=== PATIENT | female | born 1970 | race Two or more races ===

== ENCOUNTER 2020-11-12 18:03 | Inpatient (IN) | payer BC, OTHER ==
[~2020-11-12] VITALS: Ht 160 cm; Wt 89.0 kg
[2020-11-12 21:42] LABS: Basophils # (auto) 0 10 ^3/uL (0-0.2); Basophils % (auto) 0.2 % (0.0-2.0); Eosinophils # (auto) 0 10 ^3/uL (0-0.8); Hematocrit 40.4 % (36.0-46.0); Hemoglobin 13.7 g/dL (12.2-16.2); Lymphocytes # (auto) 0.9 10 ^3/uL (0.4-5.4); Lymphocytes % (auto) 13.7 % (10.0-50.0); Mean Corpuscular Hemoglobin 31.5 pg (28.0-32.0); Mean Corpuscular Volume 92.6 fL (80.0-100.0); Monocytes # (auto) 0.5 10 ^3/uL (0-1.3); Monocytes % (auto) 7.4 % (0.0-12.0); Neutrophils # (auto) 4.9 10 ^3/uL (1.6-8.6); Neutrophils % (auto) 78.7 % (37.0-80.0); Nucleated Red Blood Cells % 0.1 %; Platelet Count (auto) 258 10^3/uL (140-450); Red Blood Cells 4.37 10^6/uL (4.0-5.20); Red Cell Distribution Width 13.4 % (11.8-14.3); White Blood Cell 6.3 10^3/uL (4.4-10.8)
[2020-11-12 22:00] LABS: Anion Gap 6 (5-15); Blood Urea Nitrogen 15 mg/dL (7-18); Calcium 8.2 mg/dL (8.5-10.1); Carbon Dioxide 25 mmol/L (21-32); Chloride 105 mmol/L (98-107); Glucose 109 mg/dL (74-106); Magnesium 2.3 mg/dL (1.6-2.6); Potassium 3.6 mmol/L (3.5-5.1); Sodium 136 mmol/L (136-145)
[2020-11-12 22:06] LABS: Alanine Aminotransferase 47 U/L (13-56); Alkaline Phosphatase 65 U/L (45-117); Aspartate Aminotransferase 33 U/L (15-37); BUN/Creatinine Ratio 24.2; Bilirubin, Total 0.3 mg/dL (0.2-1.0); GFR African American 131 mL/min; GFR Non-African American 108 mL/min; Total Protein 7.4 g/dL (6.4-8.2)
[2020-11-13] MEDS ORDERED: DexAMETHasone SOD PHOS 10MG/1ML VIAL INJ IV ONE (07:15)
[2020-11-13] MEDS ORDERED: ACETAMINOPHEN 325 MG TAB PO ONE (07:15)
[2020-11-13] MEDS ORDERED: DOXYCYCLINE 100MG/250ML 250 ML IV ONE (07:15)
[2020-11-13] MEDS ORDERED: AZITHROMYCIN 500MG/ 250ML 250 ML IV ONE (07:15)
[2020-11-13] MEDS ORDERED: NITROGLYCERIN 0.4 MG SL TAB SL PRN (07:30)
[2020-11-13] MEDS ORDERED: MORPHINE SULF INJ 2 MG/ML SYRINGE 1ML IV PRN (07:30)
[2020-11-13] MEDS ORDERED: ALBUTEROL SULF HFA 90MCG INH 200DOSE IN PRN ×2 (07:30→15:45)
[2020-11-13] MEDS ORDERED: ONDANSETRON HCL 4 MG/2 ML VIAL IV PRN (07:30)
[2020-11-13] MEDS ORDERED: ACETAMINOPHEN 500 MG TAB PO PRN (07:30)
[2020-11-13] MEDS ORDERED: TEMAZEPAM 15 MG CAP PO PRN (07:30)
[2020-11-13] MEDS ORDERED: SODIUM CHLORIDE 0.9% 1,000 ML IV SCH (07:30)
[2020-11-13 08:43] LABS: CRP High Sensitivity 10.7 mg/dL (< 0.3); Magnesium 2.2 mg/dL (1.6-2.6)
[2020-11-13] MEDS: ZINC SULFATE 220mg CAP or TAB PO SCH (09:52)
[2020-11-13] MEDS: ASCORBIC ACID 1,000 MG TAB PO SCH (09:53)
[2020-11-13] MEDS: FAMOTIDINE 20 MG TAB PO SCH ×2 (09:53→23:19)
[2020-11-13] MEDS: CHOLECALCIFEROL (VITD3) 2,000 UNIT CAP PO SCH (09:54)
[2020-11-13] MEDS: ENOXAPARIN SOD 40 MG/0.4 ML SYRINGE SC SCH ×2 (09:54→23:19)
[2020-11-13] MEDS ORDERED: REMDESIVIR PER PHARMACY 0 ML IV SCH (10:15)
[2020-11-13] MEDS ORDERED: REMDESIVIR 200 MG in NS 210ml LOADING DOSE ADULT IV ONE (15:00)
[2020-11-13] MEDS ORDERED: cefTRIAXone 1GM/50ML D5W 50 ML IV ONE (15:45)
[2020-11-13] MEDS ORDERED: POTASSIUM CHL 10 Meq TABLET PO ONE (15:45)
[2020-11-13] MEDS ORDERED: FUROSEMIDE 20 MG/2 ML VIAL IV ONE (15:45)
[2020-11-13] MEDS: SODIUM CHLORIDE 0.9% 1,000 ML IV SCH (16:33)
[2020-11-14 00:20] VITALS: BP 121/63
[2020-11-14 00:35] VITALS: BP 120/60
[2020-11-14 02:00] VITALS: BP 110/63
[2020-11-14 06:20] LABS: Basophils # (auto) 0 10 ^3/uL (0-0.2); Basophils % (auto) 0.1 % (0.0-2.0); Eosinophils # (auto) 0 10 ^3/uL (0-0.8); Hematocrit 36.5 % (36.0-46.0); Hemoglobin 12.6 g/dL (12.2-16.2); Lymphocytes # (auto) 1.6 10 ^3/uL (0.4-5.4); Lymphocytes % (auto) 20.4 % (10.0-50.0); Mean Corpuscular Hemoglobin 31.9 pg (28.0-32.0); Mean Corpuscular Hgb Conc. 34.5 g/dL (32.0-36.0); Mean Corpuscular Volume 92.5 fL (80.0-100.0); Monocytes # (auto) 0.7 10 ^3/uL (0-1.3); Monocytes % (auto) 8.9 % (0.0-12.0); Neutrophils # (auto) 5.4 10 ^3/uL (1.6-8.6); Neutrophils % (auto) 70.6 % (37.0-80.0); Nucleated Red Blood Cells % 0.1 %; Platelet Count (auto) 284 10^3/uL (140-450); Red Blood Cells 3.95 10^6/uL (4.0-5.20); Red Cell Distribution Width 13.1 % (11.8-14.3); White Blood Cell 7.7 10^3/uL (4.4-10.8)
[2020-11-14 06:32] LABS: Potassium 3.7 mmol/L (3.5-5.1)
[2020-11-14 06:41] LABS: Albumin 2.6 g/dL (3.4-5.0); BUN/Creatinine Ratio 32.7; Bilirubin, Total 0.2 mg/dL (0.2-1.0); Calcium 8.3 mg/dL (8.5-10.1); Magnesium 2.1 mg/dL (1.6-2.6); Total Protein 6.8 g/dL (6.4-8.2)
--- NOTE | 2020-11-14 06:57 | NUR ---
Respiratory note: MEDICATION NOT AT BEDSIDE. HR 91, RR 18, POX 96%, BS CLR/DIM. NO DISTRESS NOTED.
[2020-11-14] MEDS: BUDESONIDE (INHALATION) 180 MCG IH IN SCH ×3 (07:33→22:00)
[2020-11-14] MEDS: cefTRIAXone 1GM/50ML D5W 50 ML IV SCH (08:50)
[2020-11-14] MEDS: ZINC SULFATE 220mg CAP or TAB PO SCH (08:52)
[2020-11-14] MEDS: POTASSIUM CHL 10 Meq TABLET PO SCH (08:53)
[2020-11-14] MEDS: FAMOTIDINE 20 MG TAB PO SCH ×2 (08:53→22:28)
[2020-11-14] MEDS: CHOLECALCIFEROL (VITD3) 2,000 UNIT CAP PO SCH (08:53)
[2020-11-14] MEDS: ASCORBIC ACID 1,000 MG TAB PO SCH (08:53)
[2020-11-14] MEDS: ENOXAPARIN SOD 40 MG/0.4 ML SYRINGE SC SCH ×2 (08:54→22:28)
[2020-11-14] MEDS: AZITHROMYCIN 500MG/ 250ML 250 ML IV SCH (08:58)
[2020-11-14] MEDS: DexAMETHasone SOD PHOS 10MG/1ML VIAL INJ IV SCH (08:58)
[2020-11-14] MEDS: FUROSEMIDE 20 MG/2 ML VIAL IV SCH (08:59)
[2020-11-14] MEDS ORDERED: AZITHROMYCIN 500MG/D5WorNS 250ml IV SCH (10:00)
[2020-11-14] MEDS: SODIUM CHLORIDE 0.9% 1,000 ML IV SCH (11:48)
[2020-11-14] MEDS: REMDESIVIR 100 MG in SODIUM CHL 0.9% 250 ML IV SCH (15:00)
[2020-11-15] MEDS: cefTRIAXone 1GM/50ML D5W 50 ML IV SCH (09:00)
[2020-11-15] MEDS: DexAMETHasone SOD PHOS 10MG/1ML VIAL INJ IV SCH ×2 (10:00→21:56)
[2020-11-15] MEDS: FUROSEMIDE 20 MG/2 ML VIAL IV SCH (10:00)
[2020-11-15] MEDS: BUDESONIDE (INHALATION) 180 MCG IH IN SCH ×2 (10:00→21:19)
[2020-11-15] MEDS: ASCORBIC ACID 1,000 MG TAB PO SCH (10:00)
[2020-11-15] MEDS: POTASSIUM CHL 10 Meq TABLET PO SCH (10:00)
[2020-11-15] MEDS: CHOLECALCIFEROL (VITD3) 2,000 UNIT CAP PO SCH (10:00)
[2020-11-15] MEDS: AZITHROMYCIN 500MG/ 250ML 250 ML IV SCH (10:00)
[2020-11-15] MEDS: ZINC SULFATE 220mg CAP or TAB PO SCH (10:00)
[2020-11-15] MEDS: ENOXAPARIN SOD 40 MG/0.4 ML SYRINGE SC SCH ×2 (10:00→21:56)
[2020-11-15] MEDS: FAMOTIDINE 20 MG TAB PO SCH ×2 (10:00→21:56)
[2020-11-15 10:47] LABS: Albumin 2.7 g/dL (3.4-5.0); Calcium 8.4 mg/dL (8.5-10.1); Potassium 3.6 mmol/L (3.5-5.1)
[2020-11-15 10:50] LABS: BUN/Creatinine Ratio 24.3; Bilirubin, Total 0.3 mg/dL (0.2-1.0); Total Protein 6.9 g/dL (6.4-8.2)
--- NOTE | 2020-11-15 12:34 | NUR ---
1230 11/15/20 - Faxed to [facility] at [phone], face sheet, order for home oxygen at 3L NC 15/06 for acute resp failure due to COVID PNA. Pending review and delivey of portable to bedside. Addendum: 11/15/20 at 1520 by Melody Neil RN Disregard the above note, wrong patient
[2020-11-15] MEDS ORDERED: DEXTROSE (50%) 50ML SYRG IV PRN (15:00)
[2020-11-15] MEDS ORDERED: POTASSIUM CHL 10 Meq TABLET PO ONE (15:00)
[2020-11-15] MEDS ORDERED: FUROSEMIDE 20 MG/2 ML VIAL IV ONE (15:00)
--- NOTE | 2020-11-15 15:10 | NUR ---
Assessment Patient is a 50-year-old female who is alert and oriented. Prior to admission patient was visiting her boyfriend in [facility] address: [id number] [facility] [id number]. Patient resides in [place]. Per patient she will return home to her boyfriend and he will transport her home. Patient functioned independently. Patient does not have any medical equipment now. Advised patient there is a social service consult for home oxygen at 2 l/min. Informed patient she has the right to participate in all discharge planning. Patient does not have an advance directive. Patient has been provided with information for an advanced directive. Patient verbalized understanding and agrees to discharge plan. Faxed clinical information to [facility] . Jhonny Adams with [facility] order has been received and they will need an authorization from patient health plan. MAU Oliver will obtain authorization from health plan.
[2020-11-15] MEDS: InsuLIN REG 1unit/0.01ml Soln (100units/ml) SC SCH ×2 (16:28→22:16)
[2020-11-15] MEDS: ACCU-CHEK COMFORT CURVE STRIP VI SCH ×2 (16:28→22:18)
[2020-11-15 16:30] VITALS: BP 132/77
[2020-11-15] MEDS: REMDESIVIR 100 MG in SODIUM CHL 0.9% 250 ML IV SCH (17:28)
[2020-11-15] MEDS ORDERED: guaiFENesin 200 MG/10 ML UD PO PRN (17:45)
[2020-11-15] MEDS: guaiFENesin-DM 100/10mg/5ml SYR PO PRN (18:38)
[2020-11-15 22:00] VITALS: BP 117/66
[2020-11-16 05:00] VITALS: BP 124/70
[2020-11-16] MEDS: InsuLIN REG 1unit/0.01ml Soln (100units/ml) SC SCH ×4 (06:00→21:52)
[2020-11-16] MEDS: ACCU-CHEK COMFORT CURVE STRIP VI SCH ×4 (06:01→21:53)
[2020-11-16 08:00] VITALS: BP 130/83
[2020-11-16] MEDS: cefTRIAXone 1GM/50ML D5W 50 ML IV SCH (09:15)
[2020-11-16] MEDS: FAMOTIDINE 20 MG TAB PO SCH ×2 (10:00→21:58)
[2020-11-16] MEDS: ENOXAPARIN SOD 40 MG/0.4 ML SYRINGE SC SCH ×2 (10:18→21:59)
[2020-11-16] MEDS: DexAMETHasone SOD PHOS 10MG/1ML VIAL INJ IV SCH ×2 (10:19→21:58)
[2020-11-16] MEDS: ASCORBIC ACID 1,000 MG TAB PO SCH (10:19)
[2020-11-16] MEDS: FUROSEMIDE 20 MG/2 ML VIAL IV SCH (10:19)
[2020-11-16] MEDS: ZINC SULFATE 220mg CAP or TAB PO SCH (10:19)
[2020-11-16] MEDS: AZITHROMYCIN 500MG/ 250ML 250 ML IV SCH (10:20)
[2020-11-16] MEDS: POTASSIUM CHL 10 Meq TABLET PO SCH (10:20)
[2020-11-16] MEDS: CHOLECALCIFEROL (VITD3) 2,000 UNIT CAP PO SCH (10:20)
[2020-11-16] MEDS: guaiFENesin-DM 100/10mg/5ml SYR PO PRN (10:29)
--- NOTE | 2020-11-16 12:27 | NUR ---
Nutrition assessment Notes please see attached link for complete assessment [employer] needs ABW [id number] kcals (20-23 kcal/kgABW), Est Protein needs:70-77 gms/day (1.0-1.1 gm/kgABW). Will continue to monitor and reassess prn.. Addendum: 11/16/20 at [address]én[address] Amended: Links added.
--- NOTE | 2020-11-16 14:40 | NUR ---
DR. DODGE IN TO SEE PT.
[2020-11-16] MEDS: REMDESIVIR 100 MG in SODIUM CHL 0.9% 250 ML IV SCH (15:48)
[2020-11-16 16:28] VITALS: BP 128/67
--- NOTE | 2020-11-16 17:10 | NUR ---
PT C/O PAIN TO IV SITE RFA#20. IV CATHETER DC'D CATHETER INTACT, NO PHLEBITIS. IV INSERTION TO LFA#20, FLUSHES WELL. RESUMED IV INFUSION. PT TOLERATED PROCEDURE WELL. CALL LIGHT WITHIN REACH.
[2020-11-16] MEDS: BUDESONIDE (INHALATION) 180 MCG IH IN SCH ×2 (21:57→22:00)
[2020-11-16 22:54] VITALS: BP 118/70
[2020-11-17] VITALS: BP 118/70
[2020-11-17 05:01] VITALS: BP 140/81
[2020-11-17 06:01] LABS: Basophils # (auto) 0 10 ^3/uL (0-0.2); Basophils % (auto) 0.3 % (0.0-2.0); Eosinophils # (auto) 0 10 ^3/uL (0-0.8); Lymphocytes # (auto) 1.1 10 ^3/uL (0.4-5.4); Monocytes # (auto) 0.4 10 ^3/uL (0-1.3); Monocytes % (auto) 4.3 % (0.0-12.0); Red Blood Cells 4.32 10^6/uL (4.0-5.20)
[2020-11-17 06:07] LABS: Hematocrit 39.9 % (36.0-46.0); Hemoglobin 13.9 g/dL (12.2-16.2); Lymphocytes % (auto) 11.6 % (10.0-50.0); Mean Corpuscular Hemoglobin 32.2 pg (28.0-32.0); Mean Corpuscular Hgb Conc. 34.9 g/dL (32.0-36.0); Mean Corpuscular Volume 92.3 fL (80.0-100.0); Neutrophils # (auto) 7.9 10 ^3/uL (1.6-8.6); Neutrophils % (auto) 83.8 % (37.0-80.0); Platelet Count (auto) 466 10^3/uL (140-450); Red Cell Distribution Width 12.9 % (11.8-14.3); White Blood Cell 9.5 10^3/uL (4.4-10.8)
[2020-11-17 06:25] LABS: Potassium 4.1 mmol/L (3.5-5.1)
[2020-11-17] MEDS: ACCU-CHEK COMFORT CURVE STRIP VI SCH ×4 (06:28→22:16)
[2020-11-17] MEDS: InsuLIN REG 1unit/0.01ml Soln (100units/ml) SC SCH ×4 (06:28→21:58)
[2020-11-17 06:36] LABS: Albumin 2.8 g/dL (3.4-5.0); BUN/Creatinine Ratio 35.2; Bilirubin, Total 0.3 mg/dL (0.2-1.0); Calcium 8.9 mg/dL (8.5-10.1); Total Protein 7.2 g/dL (6.4-8.2)
[2020-11-17] MEDS: guaiFENesin-DM 100/10mg/5ml SYR PO PRN ×2 (06:52→11:23)
[2020-11-17 08:00] VITALS: BP 114/64
[2020-11-17] MEDS: cefTRIAXone 1GM/50ML D5W 50 ML IV SCH (08:33)
[2020-11-17] MEDS: DexAMETHasone SOD PHOS 10MG/1ML VIAL INJ IV SCH ×2 (08:34→22:15)
[2020-11-17] MEDS: ENOXAPARIN SOD 40 MG/0.4 ML SYRINGE SC SCH ×2 (08:34→22:15)
[2020-11-17] MEDS: ZINC SULFATE 220mg CAP or TAB PO SCH (08:34)
[2020-11-17] MEDS: ASCORBIC ACID 1,000 MG TAB PO SCH (08:34)
[2020-11-17] MEDS: FAMOTIDINE 20 MG TAB PO SCH ×2 (08:35→22:15)
[2020-11-17] MEDS: POTASSIUM CHL 10 Meq TABLET PO SCH (08:35)
[2020-11-17] MEDS: CHOLECALCIFEROL (VITD3) 2,000 UNIT CAP PO SCH (08:36)
[2020-11-17] MEDS: FUROSEMIDE 20 MG/2 ML VIAL IV SCH (08:41)
[2020-11-17] MEDS: AZITHROMYCIN 500MG/ 250ML 250 ML IV SCH (09:30)
--- NOTE | 2020-11-17 10:20 | NUR ---
DR. SOSA IN TO SEE. PT. RECOMMENDS PT TO BE ON ROOM AIR AND CONTINUE TO MONITOR PT FOR OXYGEN REQUIREMENTS. PT AT 92% ON ROOM AIR AT MOMENT. TOLERATING WELL. CALL LIGHT WITHIN REACH.
[2020-11-17] MEDS: BUDESONIDE (INHALATION) 180 MCG IH IN SCH ×2 (12:57→21:54)
[2020-11-17] MEDS: REMDESIVIR 100 MG in SODIUM CHL 0.9% 250 ML IV SCH (15:18)
[2020-11-17 16:00] VITALS: BP 127/66
--- NOTE | 2020-11-17 18:55 | NUR ---
PT ON HIGH FOWLERS. DENIES ANY DISCOMFORT. 91% ON ROOM AIR. CALL LIGHT WITHIN REACH.
[2020-11-18] VITALS: BP 127/76
[2020-11-18] MEDS: ACCU-CHEK COMFORT CURVE STRIP VI SCH ×2 (05:54→12:47)
[2020-11-18] MEDS: InsuLIN REG 1unit/0.01ml Soln (100units/ml) SC SCH ×2 (06:12→12:42)
[2020-11-18 08:00] VITALS: BP 120/77
[2020-11-18] MEDS: cefTRIAXone 1GM/50ML D5W 50 ML IV SCH (08:20)
--- NOTE | 2020-11-18 09:50 | NUR ---
DR. SOSA IN TO SEE PT. MD REPORTS WILL DC PATIENT HOME TODAY ON ROOM AIR.
[2020-11-18] MEDS: DexAMETHasone SOD PHOS 10MG/1ML VIAL INJ IV SCH (10:01)
[2020-11-18] MEDS: ENOXAPARIN SOD 40 MG/0.4 ML SYRINGE SC SCH (10:01)
[2020-11-18] MEDS: ASCORBIC ACID 1,000 MG TAB PO SCH (10:01)
[2020-11-18] MEDS: FUROSEMIDE 20 MG/2 ML VIAL IV SCH (10:01)
[2020-11-18] MEDS: POTASSIUM CHL 10 Meq TABLET PO SCH (10:02)
[2020-11-18] MEDS: ZINC SULFATE 220mg CAP or TAB PO SCH (10:02)
[2020-11-18] MEDS: FAMOTIDINE 20 MG TAB PO SCH (10:02)
[2020-11-18] MEDS: CHOLECALCIFEROL (VITD3) 2,000 UNIT CAP PO SCH (10:03)
[2020-11-18] MEDS: BUDESONIDE (INHALATION) 180 MCG IH IN SCH (12:46)
[2020-11-18] MEDS ORDERED: ALBU108A5 IN (14:55)
[2020-11-18] MEDS ORDERED: DEX4T PO (14:55)
[2020-11-18] MEDS ORDERED: DEXT1SYP9 PO (14:55)
[2020-11-18] MEDS ORDERED: AZIT500T66 PO (14:55)
[2020-11-18] MEDS ORDERED: METF-370 PO (14:55)
[2020-11-18] MEDS ORDERED: ASCO10003 PO (14:55)
[2020-11-18] MEDS ORDERED: POTA-167 PO (14:55)
[2020-11-18] MEDS ORDERED: ASPI81CH59 PO (14:55)
[2020-11-18] MEDS ORDERED: CHOL1CAP47 PO (14:55)
[2020-11-18] MEDS ORDERED: FAMO-12 PO (14:55)
[2020-11-18] MEDS ORDERED: ATO40T PO (14:55)
[2020-11-18 15:31] VITALS: BP 120/77
[2020-11-18 16:05] VITALS: BP 149/74
--- NOTE | 2020-11-18 17:00 | NUR ---
DISCHARGE INSTRUCTIONS PROVIDED TO PT. PT VERBALIZED UNDERSTANDING FOR PRESCRIPTION ORDERS AND FOLLOW UP APPOINTMENT WITH PRIMARY MD. EDUCATIONAL MATERIALS PROVIDED, ALL QUESTIONS AND CONCERNS ADDRESSED. IV CATHETER DC'D CATHETER INTACT, NO PHLEBITIS, TELE BOX REMOVED AND RETURNED TO TELE DEPT. PT SAFELY ESCORTED OUT OF UNIT VIA WHEELCHAIR. NO S/S OF DISTRESS.
== END 2020-11-18 17:00 | disposition home or self-care (01) | DRG 871 ==
LOC: ER 18:05 → TELE 18:06 → TELE-EAST 11-15 16:01
PROVIDERS: ADMIT Nurse Practitioner; ATTEND Internal Medicine
PROC: XW033E5 Introduction of Remdesivir Anti-infective into Peripheral Vein, Percutaneous Approach, New Technology Group 5 (ICD-10-PCS; principal; 2020-11-14)
PROC: XW13325 Transfusion of Convalescent Plasma (Nonautologous) into Peripheral Vein, Percutaneous Approach, New Technology Group 5 (ICD-10-PCS; 2020-11-14)
DX: A41.89 Other specified sepsis (principal); U07.1 COVID-19; J12.89 Other viral pneumonia; J96.01 Acute respiratory failure with hypoxia; D68.69 Other thrombophilia; E66.01 Morbid (severe) obesity due to excess calories; E55.9 Vitamin D deficiency, unspecified; G43.909 Migraine, unspecified, not intractable, without status migrainosus; E78.5 Hyperlipidemia, unspecified; R73.03 Prediabetes; R73.9 Hyperglycemia, unspecified; Z79.899 Other long term (current) drug therapy; Z68.34 Body mass index [BMI] 34.0-34.9, adult
CPT/HCPCS: 36415; 36600; 70450; 71045; 80053; 80061; 82306; 82728; 82805; 82962; 83036; 83605; 83615; 83735; 84443; 84484; 85025; 85379; 86141; 86850; 86900; 86901; 87040; 87426; 94640; G0378; J0696; J1100; J1815